=== PATIENT | male | born 1950 | race Caucasian/White ===

== ENCOUNTER 2022-02-28 02:07 | Inpatient (IN) ==
[2022-02-28] MEDS ORDERED: Lactated Ringers 1000 ml BAG 1,000 ML IV ONE ×3 (02:32→15:12)
[2022-02-28 02:59] LABS: ABS Eosinophils 0.1 10^3/ul (0-0.6); ABS Lymphocytes 0.7 10^3/ul (1.0-4.8); ABS Monocytes 0.7 10^3/ul (0-0.8); ABS Neutrophils 6.5 10^3/ul (1.5-7.7); Eosinophil % 0.6 %; Hematocrit 39 % (42-52); Hemoglobin 12.5 g/dL (14.0-18.0); Lymphocyte % 8.5 %; Mean Corpuscular HGB Conc 32 g/dL (31-36); Mean Corpuscular Hemoglobin 32 pg (27-31); Mean Corpuscular Volume 99 fL (80-94); Mean Platelet Volume 8.9 fL (7.4-10.4); Nucleated Red Blood Cells % 0.1; Platelet Count 211 10^3/uL (150-450); Red Blood Count 3.92 10^6 /uL (4.18-5.48); Red Cell Distribution Width 17 % (10-15); White Blood Count 7.9 10^3/uL (3.5-10.8)
[2022-02-28 03:00] LABS: Venous Bicarbonate HCO3 26.9 mmol/L (24-28)
[2022-02-28 04:01] LABS: Albumin 3.3 g/dL (3.2-5.2); Albumin/Globulin Ratio 0.8 (1-3); Calcium 8.4 mg/dL (8.6-10.3); Potassium 4.5 mmol/L (3.5-5.0); Total Bilirubin 0.4 mg/dL (0.2-1.0); Total Protein 7.3 g/dL (6.4-8.9); eGFR CKD-EPI 31.6 (>60)
[2022-02-28] MEDS ORDERED: Iodixanol (CONTRAST) 320 MG/ML 100 ML SDV IV ONE (07:26)
[2022-02-28 07:27] LABS: High Sensitivity Troponin 1 Hr 54 pg/mL (<20)
[2022-02-28 11:31] LABS: PCO2 Arterial 69 mmHg (35-45); PO2 Arterial 101 mmHg (80-100)
[2022-02-28] MEDS ORDERED: cefTRIAXone 1 gm/50 mL D5W 1 GM/50 ML BAG IV ONE (11:33)
[2022-02-28 13:02] LABS: ABS Eosinophils 0.1 10^3/ul (0-0.6); ABS Lymphocytes 1.5 10^3/ul (1.0-4.8); ABS Monocytes 0.7 10^3/ul (0-0.8); ABS Neutrophils 3.7 10^3/ul (1.5-7.7); Eosinophil % 1.7 %; Hematocrit 35 % (42-52); Hemoglobin 11.4 g/dL (14.0-18.0); Lymphocyte % 25.2 %; Mean Corpuscular HGB Conc 33 g/dL (31-36); Mean Corpuscular Hemoglobin 32 pg (27-31); Mean Corpuscular Volume 98 fL (80-94); Mean Platelet Volume 8.7 fL (7.4-10.4); Platelet Count 191 10^3/uL (150-450); Red Blood Count 3.56 10^6 /uL (4.18-5.48); Red Cell Distribution Width 16 % (10-15)
[2022-02-28 13:08] LABS: Urine Appearance Clear; Urine Bilirubin Negative (Negative); Urine Blood Negative (Negative); Urine Color Amber; Urine Glucose Negative (Negative); Urine Ketones Negative (Negative); Urine Nitrite Negative (Negative); Urine Protein 1+(30 mg/dL) (Negative); Urine Specific Gravity 1.032 (1.002-1.030); Urine Urobilinogen Negative (Negative)
[2022-02-28 13:14] LABS: Urine Bacteria Absent (Absent); Urine Red Blood Cell 2+(6-10/hpf) (Absent); Urine Squamous Epithelial Cell Present (Absent); Urine White Blood Cell 1+(6-10/hpf) (Absent)
[2022-02-28 13:32] LABS: Blood Urea Nitrogen 43 mg/dL (6-24); Calcium 7.9 mg/dL (8.6-10.3); Chloride 95 mmol/L (101-111); Glucose 177 mg/dL (70-100); Magnesium 1.9 mg/dL (1.9-2.7); Sodium 141 mmol/L (135-145); eGFR CKD-EPI 35.7 (>60)
[2022-02-28 14:02] LABS: Anion Gap 6 mmol/L (2-11); CO2 Carbon Dioxide 40 mmol/L (22-32)
[2022-02-28] MEDS ORDERED: Dextrose 50% Syringe 50 ml 25 GM/50 ML SYRINGE IV PUSH PRN (15:25)
[2022-02-28] MEDS ORDERED: Albuterol/Ipratropium NEB.SOL (2.5/0.5 MG) 3 ML NEB.SOLN INH PRN (16:49)
[2022-02-28 16:59] LABS: C Reactive Protein 71.44 mg/L (<8.01)
[2022-02-28] MEDS: Mometasone/Formoter 100/5 MDI INH SCH (20:09)
[2022-02-28] MEDS: Acetaminophen IV 1 GM/100ML 1,000 MG/100 ML BAG IV PRN (20:20)
[2022-02-28] MEDS: Insulin GLARGINE 100 un/ml 10 ml VIAL SUBCUT SCH (22:11)
[2022-03-01 02:05] LABS: Osmolality Serum 314 mOsm/kg (275-295)
[2022-03-01 02:07] LABS: Urine Osmo 656 mOsm/kg (150-1150)
[2022-03-01] MEDS: SPIRIVA Respimat (tiotropium) 2.5 mcg/inh Inhaler INH SCH (07:24)
[2022-03-01] MEDS: Mometasone/Formoter 100/5 MDI INH SCH ×2 (07:24→21:08)
[2022-03-01 08:40] LABS: ABS Eosinophils 0.1 10^3/ul (0-0.6); ABS Lymphocytes 1.6 10^3/ul (1.0-4.8); ABS Monocytes 0.7 10^3/ul (0-0.8); Eosinophil % 1.9 %; Hematocrit 37 % (42-52); Hemoglobin 11.9 g/dL (14.0-18.0); Lymphocyte % 24.1 %; Mean Corpuscular HGB Conc 32 g/dL (31-36); Mean Corpuscular Hemoglobin 32 pg (27-31); Mean Corpuscular Volume 99 fL (80-94); Mean Platelet Volume 8.8 fL (7.4-10.4); Platelet Count 181 10^3/uL (150-450); Red Blood Count 3.71 10^6 /uL (4.18-5.48); Red Cell Distribution Width 16 % (10-15); White Blood Count 6.4 10^3/uL (3.5-10.8)
[2022-03-01] MEDS ORDERED: Furosemide 40 mg/4 ml IV VIAL IV SLOW PU ONE (08:46)
[2022-03-01] MEDS: Acetaminophen IV 1 GM/100ML 1,000 MG/100 ML BAG IV PRN (08:49)
[2022-03-01] MEDS: Aspirin EC 81 mg TAB.EC (enteric coated) PO SCH (08:51)
[2022-03-01 08:54] LABS: Albumin 3.2 g/dL (3.2-5.2); Albumin/Globulin Ratio 0.9 (1-3); Calcium 8.5 mg/dL (8.6-10.3); Globulin 3.7 g/dL (2-4); HDL Cholesterol 16.7 mg/dL; Potassium 3.6 mmol/L (3.5-5.0); Total Bilirubin 0.6 mg/dL (0.2-1.0); Total Protein 6.9 g/dL (6.4-8.9); eGFR CKD-EPI 68.8 (>60)
[2022-03-01 09:06] LABS: Venous Bicarbonate HCO3 38.5 mmol/L (24-28)
[2022-03-01] MEDS: cefTRIAXone 1 gm/50 mL D5W 1 GM/50 ML BAG IV SCH (10:30)
[2022-03-01] MEDS: Furosemide 40 mg/4 ml IV VIAL IV SCH (13:06)
[2022-03-01 16:42] LABS: PCO2 Arterial 71 mmHg (35-45); PO2 Arterial 64 mmHg (80-100)
[2022-03-01] MEDS ORDERED: Duloxetine Sprinkle 30 mg CAP PO SCH (21:00)
[2022-03-01] MEDS: DULoxetine DR 30 mg CAP PO SCH (21:57)
[2022-03-01] MEDS: Insulin GLARGINE 100 un/ml 10 ml VIAL SUBCUT SCH (22:05)
[2022-03-02] MEDS ORDERED: Senna TAB 8.6 mg TAB PO PRN (02:37)
[2022-03-02] MEDS ORDERED: Polyethylene Glycol 3350 17 GM PACKET PO PRN (02:37)
[2022-03-02] MEDS: Ondansetron ODT 4 mg TAB 4 MG TAB SL PRN ×2 (02:44→22:03)
[2022-03-02 05:26] LABS: ABS Eosinophils 0.1 10^3/ul (0-0.6); ABS Lymphocytes 1.6 10^3/ul (1.0-4.8); ABS Monocytes 0.8 10^3/ul (0-0.8); ABS Neutrophils 4.9 10^3/ul (1.5-7.7); Eosinophil % 1.1 %; Hematocrit 38 % (42-52); Hemoglobin 11.8 g/dL (14.0-18.0); Lymphocyte % 21.4 %; Mean Corpuscular HGB Conc 31 g/dL (31-36); Mean Corpuscular Hemoglobin 31 pg (27-31); Mean Corpuscular Volume 100 fL (80-94); Nucleated Red Blood Cells % 0.1; Platelet Count 181 10^3/uL (150-450); Red Blood Count 3.76 10^6 /uL (4.18-5.48); Red Cell Distribution Width 16 % (10-15); White Blood Count 7.4 10^3/uL (3.5-10.8)
[2022-03-02 05:35] LABS: PCO2 Arterial 67 mmHg (35-45); PO2 Arterial 81 mmHg (80-100)
[2022-03-02 06:18] LABS: Blood Urea Nitrogen 26 mg/dL (6-24); Calcium 8.8 mg/dL (8.6-10.3); Chloride 95 mmol/L (101-111); Glucose 176 mg/dL (70-100); Magnesium 1.7 mg/dL (1.9-2.7); Sodium 140 mmol/L (135-145); eGFR CKD-EPI 93.6 (>60)
[2022-03-02 06:29] LABS: Anion Gap 3 mmol/L (2-11); CO2 Carbon Dioxide 42 mmol/L (22-32)
[2022-03-02] MEDS ORDERED: Magnesium Sulfate IV 1GM/100ML 1 GM/100 ML BAG IV ONE (08:19)
[2022-03-02] MEDS ORDERED: Potassium Chlor 20 meq TAB.ER PO ONE (08:19)
[2022-03-02] MEDS: Mometasone/Formoter 100/5 MDI INH SCH ×2 (08:39→18:55)
[2022-03-02] MEDS: SPIRIVA Respimat (tiotropium) 2.5 mcg/inh Inhaler INH SCH (08:39)
[2022-03-02] MEDS ORDERED: Influenza vaccine *QUAD* *2022-23* 0.5 ML SYRINGE IM ONE (09:00)
[2022-03-02] MEDS: Aspirin EC 81 mg TAB.EC (enteric coated) PO SCH (10:36)
[2022-03-02] MEDS: Furosemide 40 mg/4 ml IV VIAL IV SCH ×2 (10:37→12:53)
[2022-03-02] MEDS: cefTRIAXone 1 gm/50 mL D5W 1 GM/50 ML BAG IV SCH (12:03)
[2022-03-02] MEDS ORDERED: Sulfur Hexaflouride MICROSPHR 25 MG VIAL ONE (13:33)
[2022-03-02] MEDS: DULoxetine DR 30 mg CAP PO SCH (21:15)
[2022-03-02] MEDS: Insulin GLARGINE 100 un/ml 10 ml VIAL SUBCUT SCH (21:18)
[2022-03-02] MEDS ORDERED: Ondansetron 4 mg VIAL 2 MG/ML 2 ml VIAL IV ONE (23:14)
[2022-03-03] MEDS: Acetaminophen IV 1 GM/100ML 1,000 MG/100 ML BAG IV PRN ×3 (01:42→22:48)
[2022-03-03 06:39] LABS: Calcium 8.9 mg/dL (8.6-10.3); Magnesium 1.6 mg/dL (1.9-2.7); Potassium 3.7 mmol/L (3.5-5.0); eGFR CKD-EPI 100.7 (>60)
[2022-03-03] MEDS: Mometasone/Formoter 100/5 MDI INH SCH ×2 (07:55→19:11)
[2022-03-03] MEDS: SPIRIVA Respimat (tiotropium) 2.5 mcg/inh Inhaler INH SCH (07:55)
[2022-03-03] MEDS ORDERED: Magnesium Sulfate IV 3 GM in NS 0.9% 100 ml BAG 100 ML IVPB ONE (08:19)
[2022-03-03] MEDS ORDERED: Potassium Chlor 20 meq TAB.ER PO ONE ×2 (08:20→16:33)
[2022-03-03] MEDS: Furosemide 40 mg/4 ml IV VIAL IV SCH (09:13)
[2022-03-03] MEDS: Aspirin EC 81 mg TAB.EC (enteric coated) PO SCH (09:14)
[2022-03-03 11:57] LABS: TSH Ultra Thyroid Stim Horm 0.68 mcIU/mL (0.34-5.60)
[2022-03-03 12:00] LABS: Folate 18.04 ng/mL (5.90-24.80); Free T4 1.02 ng/dL (0.61-1.12)
[2022-03-03 12:01] LABS: Free T3 2.8 pg/mL (2.5-3.9)
[2022-03-03 15:14] LABS: Calcium 8.9 mg/dL (8.6-10.3); Magnesium 1.8 mg/dL (1.9-2.7); eGFR CKD-EPI 98.9 (>60)
[2022-03-03] MEDS ORDERED: Magnesium Sulfate 2 gm BAG 2 GM/50 ML BAG IVPB ONE (16:32)
[2022-03-03] MEDS: Bumetanide IV 0.25 MG/ML 4 ml VIAL (1 mg) SLOW PUSH SCH (20:28)
[2022-03-03] MEDS: Insulin GLARGINE 100 un/ml 10 ml VIAL SUBCUT SCH (22:47)
[2022-03-03] MEDS: DULoxetine DR 30 mg CAP PO SCH (22:48)
[2022-03-04] MEDS: Bumetanide IV 0.25 MG/ML 4 ml VIAL (1 mg) SLOW PUSH SCH ×2 (05:46→17:43)
[2022-03-04 07:17] LABS: Calcium 8.7 mg/dL (8.6-10.3); Magnesium 1.7 mg/dL (1.9-2.7); Potassium 3.8 mmol/L (3.5-5.0); eGFR CKD-EPI 102.7 (>60)
[2022-03-04] MEDS: SPIRIVA Respimat (tiotropium) 2.5 mcg/inh Inhaler INH SCH (07:50)
[2022-03-04] MEDS: Mometasone/Formoter 100/5 MDI INH SCH ×2 (07:50→19:24)
[2022-03-04] MEDS: Aspirin EC 81 mg TAB.EC (enteric coated) PO SCH (10:42)
[2022-03-04] MEDS: DULoxetine DR 30 mg CAP PO SCH (21:27)
[2022-03-04] MEDS: Insulin GLARGINE 100 un/ml 10 ml VIAL SUBCUT SCH (21:28)
[2022-03-05] MEDS: Bumetanide IV 0.25 MG/ML 4 ml VIAL (1 mg) SLOW PUSH SCH ×2 (06:02→17:06)
[2022-03-05 06:09] LABS: ABS Eosinophils 0.1 10^3/ul (0-0.6); ABS Lymphocytes 1.2 10^3/ul (1.0-4.8); ABS Monocytes 0.5 10^3/ul (0-0.8); ABS Neutrophils 3.3 10^3/ul (1.5-7.7); Eosinophil % 2.5 %; Hematocrit 38 % (42-52); Hemoglobin 12.3 g/dL (14.0-18.0); Lymphocyte % 22.4 %; Mean Corpuscular HGB Conc 32 g/dL (31-36); Mean Corpuscular Hemoglobin 32 pg (27-31); Mean Corpuscular Volume 99 fL (80-94); Mean Platelet Volume 8.9 fL (7.4-10.4); Nucleated Red Blood Cells % 0.1; Platelet Count 166 10^3/uL (150-450); Red Blood Count 3.86 10^6 /uL (4.18-5.48); Red Cell Distribution Width 16 % (10-15); White Blood Count 5.2 10^3/uL (3.5-10.8)
[2022-03-05 06:27] LABS: Calcium 8.9 mg/dL (8.6-10.3); Potassium 3.9 mmol/L (3.5-5.0); eGFR CKD-EPI 98.5 (>60)
[2022-03-05] MEDS: Mometasone/Formoter 100/5 MDI INH SCH ×2 (07:46→21:03)
[2022-03-05] MEDS: SPIRIVA Respimat (tiotropium) 2.5 mcg/inh Inhaler INH SCH (07:47)
[2022-03-05] MEDS: Aspirin EC 81 mg TAB.EC (enteric coated) PO SCH (08:10)
[2022-03-05 11:11] LABS: Magnesium 1.5 mg/dL (1.9-2.7)
[2022-03-05] MEDS ORDERED: Magnesium Sulf 4 GM/100 ML IV 4,000 MG/100 ML BAG IVPB ONE (11:14)
[2022-03-05] MEDS: DULoxetine DR 30 mg CAP PO SCH (20:47)
[2022-03-05] MEDS ORDERED: Insulin GLARGINE 100 un/ml 10 ml VIAL SUBCUT SCH (21:00)
[2022-03-06] MEDS: Bumetanide IV 0.25 MG/ML 4 ml VIAL (1 mg) SLOW PUSH SCH (05:53)
[2022-03-06] MEDS: SPIRIVA Respimat (tiotropium) 2.5 mcg/inh Inhaler INH SCH (08:09)
[2022-03-06] MEDS: Mometasone/Formoter 100/5 MDI INH SCH (08:09)
[2022-03-06] MEDS: Aspirin EC 81 mg TAB.EC (enteric coated) PO SCH (08:18)
[2022-03-06 11:15] VITALS: BP 152/89
[2022-03-06] MEDS ORDERED: Polyethylene Glycol 3350 17 GM PACKET PO ONE (12:46)
== END 2022-03-06 13:50 | disposition home or self-care (01) | DRG 602 ==
LOC: ED 02:07 → SUATTDRO 15:06 → EDHOLD 15:06 → MEDTELE 17:15
PROVIDERS: ADMIT Internal Medicine; ATTEND Internal Medicine

== ENCOUNTER 2023-05-10 15:11 | Inpatient (IN) ==
[2023-05-10 16:29] LABS: ABS Eosinophils 0.1 10^3/uL (0.0-0.5); ABS Lymphocytes 1.4 10^3/uL (1.0-4.8); ABS Monocytes 0.7 10^3/uL (0.0-1.1); ABS Neutrophils 5.6 10^3/uL (1.5-7.6); ABS Nucleated RBC 0.01 10^3/ul; Eosinophil % 1.6 %; Hematocrit 37.1 % (38-53); Hemoglobin 12.3 g/dL (13.2-16.3); Mean Corpuscular Hemoglobin 31.7 pg (27-33); Mean Corpuscular Hgb Conc 33.1 g/dL (31-36); Mean Corpuscular Volume 95.9 fL (80-97); Mean Platelet Volume 10.5 fL (7.5-11.2); Nucleated Red Blood Cells % 0.1 %/100WBC (0.0-0.8); Platelet Count 242 10^3/uL (150-450); Red Blood Count 3.87 10^6/uL (4.06-5.63); Red Cell Distribution Width 15.2 % (12-17); White Blood Count 7.9 10^3/uL (3.6-10.2)
[2023-05-10 16:39] LABS: Activated Partial Thrombo Time 36.8 seconds (26.0-38.0); INR 1.52 (0.83-1.13)
[2023-05-10 17:10] LABS: Albumin 3.3 g/dL (3.2-5.2); Albumin/Globulin Ratio 0.8 (1-3); C Reactive Protein 29.53 mg/L (<8.01); Calcium 9.1 mg/dL (8.6-10.3); Creatinine, Serum 6.18 mg/dL (0.67-1.17); Globulin 4.3 g/dL (2-4); Magnesium 3.4 mg/dL (1.9-2.7); Potassium 7.3 mmol/L (3.5-5.0); Total Bilirubin 0.4 mg/dL (0.2-1.0); Total Protein 7.6 g/dL (6.4-8.9)
[2023-05-10] MEDS ORDERED: CALCIUM GLUCONATE 1GM/50ML NS 1 GM/50 ML BAG IV ONE (17:12)
[2023-05-10] MEDS ORDERED: Dextrose 50% Syringe 50 ml 25 GM/50 ML SYRINGE IV PUSH ONE (17:13)
[2023-05-10 17:28] LABS: TSH Ultra Thyroid Stim Horm 1.58 mcIU/mL (0.34-5.60)
[2023-05-10] MEDS ORDERED: NS 0.9% 1000 ml BAG 1,000 ML IV SCH ×2 (17:30→18:00)
[2023-05-10 17:38] LABS: High Sensitivity Troponin 1 Hr 13 pg/mL (<20)
[2023-05-10] MEDS ORDERED: Sodium Polystyrene ORAL.SUSP 15 GM/60 ML BTL PO ONE (17:50)
[2023-05-10] MEDS ORDERED: Lactated Ringers 1000 ml BAG 1,000 ML IV SCH (18:00)
[2023-05-10 19:25] LABS: Phosphorus 5.1 mg/dL (2.5-5.0)
[2023-05-10 20:00] LABS: Calcium 9.2 mg/dL (8.6-10.3); Creatinine, Serum 6.09 mg/dL (0.67-1.17); eGFR CKD-EPI 9.1 (>60)
[2023-05-10] MEDS ORDERED: Dextrose 50% Syringe 50 ml 25 GM/50 ML SYRINGE IV PUSH PRN (20:45)
[2023-05-10] MEDS ORDERED: Senna TAB 8.6 mg TAB PO PRN (21:02)
[2023-05-10] MEDS ORDERED: Docusate LIQ 100 MG/10 ML UDC PO PRN (21:03)
[2023-05-10] MEDS ORDERED: Lactated Ringers 1000 ml BAG 500 ML IV ONE (21:24)
[2023-05-10 21:39] LABS: Osmolality Serum 335 mOsm/kg (275-295)
[2023-05-10 21:51] LABS: Urine Appearance Clear; Urine Bilirubin Negative (Negative); Urine Blood 1+ (Negative); Urine Color Yellow; Urine Glucose Negative (Negative); Urine Ketones Trace (Negative); Urine Nitrite Negative (Negative); Urine Protein Negative (Negative); Urine Specific Gravity 1.018 (1.002-1.030); Urine Urobilinogen Negative (Negative)
[2023-05-10 21:53] LABS: Urine Osmo 453 mOsm/kg (150-1150)
[2023-05-10 22:03] LABS: Urine Bacteria 1+ (Absent); Urine Red Blood Cell 3+(>10/hpf) (Absent); Urine Squamous Epithelial Cell Present (Absent); Urine White Blood Cell 1+(6-10/hpf) (Absent)
[2023-05-11] MEDS: Ondansetron 4 mg VIAL 2 MG/ML 2 ml VIAL IV PRN ×2 (00:07→12:25)
[2023-05-11 00:57] LABS: Calcium 9.2 mg/dL (8.6-10.3); Creatinine, Serum 6.01 mg/dL (0.67-1.17); Potassium 6.1 mmol/L (3.5-5.0); eGFR CKD-EPI 9.3 (>60)
[2023-05-11] MEDS: Triamcinolone 0.025% OINT 15 GM TUBE TOPICAL SCH ×3 (01:12→21:00)
[2023-05-11 04:19] LABS: ABS Basophils 0.1 10^3/uL (0.0-0.1); ABS Eosinophils 0.1 10^3/uL (0.0-0.5); ABS Lymphocytes 1.2 10^3/uL (1.0-4.8); ABS Monocytes 0.7 10^3/uL (0.0-1.1); ABS Neutrophils 5.6 10^3/uL (1.5-7.6); Eosinophil % 1.1 %; Hematocrit 35.5 % (38-53); Hemoglobin 11.8 g/dL (13.2-16.3); Lymphocyte % 15.4 %; Mean Corpuscular Hemoglobin 31.5 pg (27-33); Mean Corpuscular Hgb Conc 33.2 g/dL (31-36); Mean Corpuscular Volume 94.9 fL (80-97); Mean Platelet Volume 10.3 fL (7.5-11.2); Platelet Count 222 10^3/uL (150-450); Red Blood Count 3.74 10^6/uL (4.06-5.63); Red Cell Distribution Width 15.4 % (12-17); White Blood Count 7.7 10^3/uL (3.6-10.2)
[2023-05-11 04:36] LABS: Calcium 8.9 mg/dL (8.6-10.3); Creatinine, Serum 5.67 mg/dL (0.67-1.17); Magnesium 3.4 mg/dL (1.9-2.7); Potassium 6.6 mmol/L (3.5-5.0)
[2023-05-11] MEDS ORDERED: CALCIUM GLUCONATE 1GM/50ML NS 1 GM/50 ML BAG IV ONE (04:42)
[2023-05-11] MEDS ORDERED: Lactated Ringers 1000 ml BAG 1,000 ML IV ONE (04:55)
[2023-05-11] MEDS ORDERED: Dextrose 50% Syringe 50 ml 25 GM/50 ML SYRINGE IV PUSH ONE (04:56)
[2023-05-11] MEDS ORDERED: SODIUM ZIRCONIUM CYCLOSILICATE 10 GM PACKET PO ONE (04:57)
[2023-05-11 06:18] LABS: Calcium 8.7 mg/dL (8.6-10.3); Creatinine, Serum 5.4 mg/dL (0.67-1.17); Potassium 6.4 mmol/L (3.5-5.0); eGFR CKD-EPI 10.6 (>60)
[2023-05-11] MEDS ORDERED: Sodium Polystyrene ORAL.SUSP 15 GM/60 ML BTL PO ONE (07:32)
[2023-05-11] MEDS: SPIRIVA Respimat (tiotropium) 2.5 mcg/inh Inhaler INH SCH (08:07)
[2023-05-11] MEDS: Mometasone/Formoter 100/5 MDI INH SCH ×2 (08:08→21:31)
[2023-05-11] MEDS: NS 0.9% 1000 ml BAG 1,000 ML IV SCH ×2 (11:47→21:00)
[2023-05-11 12:56] LABS: Calcium 9.2 mg/dL (8.6-10.3); Creatinine, Serum 4.34 mg/dL (0.67-1.17); Potassium 5.4 mmol/L (3.5-5.0); eGFR CKD-EPI 13.7 (>60)
[2023-05-11 13:00] LABS: Rheumatoid Factor < 10 IU/mL (<15)
[2023-05-11 13:43] LABS: Hepatitis B Surface Ab Not Immune (Immune); Hepatitis C Antibody Negative (Negative)
[2023-05-11 16:51] LABS: Calcium 8.9 mg/dL (8.6-10.3); Creatinine, Serum 3.63 mg/dL (0.67-1.17); Potassium 5.5 mmol/L (3.5-5.0)
[2023-05-11 17:44] LABS: Hepatitis B Surface Antigen Nonreactive (Nonreactive)
[2023-05-11 17:53] LABS: HIV 4th Generation Nonreactive (Nonreactive)
[2023-05-11] MEDS: DULoxetine DR 30 mg CAP PO SCH ×2 (20:47)
[2023-05-12] MEDS: Ondansetron 4 mg VIAL 2 MG/ML 2 ml VIAL IV PRN ×3 (00:52→21:32)
[2023-05-12 07:42] LABS: ABS Eosinophils 0.1 10^3/uL (0.0-0.5); ABS Lymphocytes 1.4 10^3/uL (1.0-4.8); ABS Monocytes 0.8 10^3/uL (0.0-1.1); Eosinophil % 1.4 %; Hemoglobin 12.4 g/dL (13.2-16.3); Lymphocyte % 19.2 %; Mean Corpuscular Hemoglobin 31.3 pg (27-33); Mean Corpuscular Hgb Conc 32.6 g/dL (31-36); Mean Corpuscular Volume 95.9 fL (80-97); Mean Platelet Volume 10.4 fL (7.5-11.2); Platelet Count 212 10^3/uL (150-450); Red Blood Count 3.97 10^6/uL (4.06-5.63); Red Cell Distribution Width 15.3 % (12-17); White Blood Count 7.3 10^3/uL (3.6-10.2)
[2023-05-12 08:17] LABS: Creatinine, Serum 2.28 mg/dL (0.67-1.17); Magnesium 2.4 mg/dL (1.9-2.7); Potassium 4.7 mmol/L (3.5-5.0); eGFR CKD-EPI 29.7 (>60)
[2023-05-12] MEDS: SPIRIVA Respimat (tiotropium) 2.5 mcg/inh Inhaler INH SCH (08:17)
[2023-05-12] MEDS: Mometasone/Formoter 100/5 MDI INH SCH ×2 (08:17→21:04)
[2023-05-12] MEDS: Aspirin EC 81 mg TAB.EC (enteric coated) PO SCH (08:34)
[2023-05-12] MEDS: Triamcinolone 0.025% OINT 15 GM TUBE TOPICAL SCH ×2 (08:34→19:40)
[2023-05-12] MEDS ORDERED: Insulin GLARGINE 100 un/ml 10 ml VIAL SUBCUT SCH ×3 (10:00→21:00)
[2023-05-12 16:26] LABS: Kappa Free Light Chain 6.61 mg/dL; Lambda Free Light Chain, S 4.21 mg/dL
[2023-05-12] MEDS ORDERED: Dextrose 50% Syringe 50 ml 25 GM/50 ML SYRINGE IV PUSH PRN (16:39)
[2023-05-12 16:48] LABS: Complement C3 168 mg/dL (75 - 175)
[2023-05-12] MEDS: DULoxetine DR 30 mg CAP PO SCH (19:40)
[2023-05-13] MEDS ORDERED: Prochlorperazine 5 mg/ml 2 ml VIAL (10 mg) IV PRN (00:15)
[2023-05-13 06:46] LABS: ABS Eosinophils 0.2 10^3/uL (0.0-0.5); ABS Lymphocytes 1.7 10^3/uL (1.0-4.8); ABS Monocytes 0.8 10^3/uL (0.0-1.1); ABS Nucleated RBC 0.01 10^3/ul; Eosinophil % 1.9 %; Hematocrit 36.7 % (38-53); Hemoglobin 11.9 g/dL (13.2-16.3); Lymphocyte % 22.3 %; Mean Corpuscular Hemoglobin 31.4 pg (27-33); Mean Corpuscular Hgb Conc 32.6 g/dL (31-36); Mean Corpuscular Volume 96.5 fL (80-97); Mean Platelet Volume 10.5 fL (7.5-11.2); Nucleated Red Blood Cells % 0.1 %/100WBC (0.0-0.8); Platelet Count 198 10^3/uL (150-450); Red Cell Distribution Width 15.5 % (12-17); White Blood Count 7.8 10^3/uL (3.6-10.2)
[2023-05-13 07:02] LABS: Calcium 9.4 mg/dL (8.6-10.3); Creatinine, Serum 1.46 mg/dL (0.67-1.17); Magnesium 1.7 mg/dL (1.9-2.7); Potassium 4.4 mmol/L (3.5-5.0); eGFR CKD-EPI 50.8 (>60)
[2023-05-13] MEDS: Mometasone/Formoter 100/5 MDI INH SCH (08:14)
[2023-05-13] MEDS: SPIRIVA Respimat (tiotropium) 2.5 mcg/inh Inhaler INH SCH (08:14)
[2023-05-13] MEDS ORDERED: Insulin GLARGINE 100 un/ml 10 ml VIAL SUBCUT SCH (09:00)
[2023-05-13] MEDS ORDERED: Magnesium Sulfate 2 gm BAG 2 GM/50 ML BAG IVPB ONE (09:30)
[2023-05-13] MEDS: Aspirin EC 81 mg TAB.EC (enteric coated) PO SCH (09:54)
[2023-05-13] MEDS: Triamcinolone 0.025% OINT 15 GM TUBE TOPICAL SCH (10:04)
[2023-05-13 13:58] VITALS: BP 130/64
[2023-05-13 15:59] LABS: C-ANCA Negative (Negative); P-ANCA Negative (Negative)
[2023-05-14 11:53] LABS: Albumin 2.5 g/dL (3.4-4.7); Flag, M-protein Isotype Negative (Negative)
== END 2023-05-13 14:32 | disposition home or self-care (01) | DRG 683 ==
LOC: ED 15:11 → SUATTDRO 18:32 → EDHOLD 18:32 → MEDTELE 21:45
PROVIDERS: ADMIT Internal Medicine; ATTEND Internal Medicine

== ENCOUNTER 2023-06-21 09:59 | Inpatient (IN) ==
[2023-06-21 10:31] LABS: ABS Basophils 0.1 10^3/uL (0.0-0.1); ABS Lymphocytes 0.7 10^3/uL (1.0-4.8); ABS Neutrophils 11.1 10^3/uL (1.5-7.6); Eosinophil % 0.2 %; Hematocrit 35.7 % (38-53); Hemoglobin 11.6 g/dL (13.2-16.3); Lymphocyte % 5.7 %; Mean Corpuscular Hemoglobin 31.3 pg (27-33); Mean Corpuscular Hgb Conc 32.6 g/dL (31-36); Mean Corpuscular Volume 96.1 fL (80-97); Mean Platelet Volume 11.4 fL (7.5-11.2); Platelet Count 172 10^3/uL (150-450); Red Blood Count 3.72 10^6/uL (4.06-5.63); White Blood Count 12.9 10^3/uL (3.6-10.2)
[2023-06-21 10:46] LABS: Activated Partial Thrombo Time 32.2 seconds (26.0-38.0); INR 1.71 (0.83-1.13)
[2023-06-21 11:01] LABS: Albumin 3.7 g/dL (3.2-5.2); Albumin/Globulin Ratio 1.1 (1-3); C Reactive Protein 35.7 mg/L (<8.01); Calcium 9.5 mg/dL (8.6-10.3); Creatinine, Serum 2.6 mg/dL (0.67-1.17); Globulin 3.5 g/dL (2-4); Potassium 6.7 mmol/L (3.5-5.0); Total Bilirubin 0.7 mg/dL (0.2-1.0); Total Protein 7.2 g/dL (6.4-8.9); eGFR CKD-EPI 25.4 (>60)
[2023-06-21] MEDS: NS 0.9% 1000 ml BAG 1,000 ML IV ONE (11:34)
[2023-06-21] MEDS: Sodium Polystyrene ORAL.SUSP 15 GM/60 ML BTL PO ONE (11:43)
[2023-06-21 11:56] LABS: High Sensitivity Troponin 1 Hr 12 pg/mL (<20)
[2023-06-21] MEDS: Dextrose 50% Syringe 50 ml 25 GM/50 ML SYRINGE IV PUSH ONE (12:58)
[2023-06-21] MEDS: CALCIUM GLUCONATE 1GM/50ML NS 1 GM/50 ML BAG IV ONE (13:09)
[2023-06-21] MEDS ORDERED: Senna/Docusate 8.6/50 mg (NF) TAB PO PRN (15:54)
[2023-06-21] MEDS ORDERED: Docusate LIQ 100 MG/10 ML UDC PO PRN ×2 (16:08→16:13)
[2023-06-21] MEDS ORDERED: CMCS: Isosorbide Mononitr 20 mg (NF) PO PRN (16:10)
[2023-06-21] MEDS ORDERED: Senna TAB 8.6 mg TAB PO PRN (16:13)
[2023-06-21] MEDS ORDERED: Dextrose 50% Syringe 50 ml 25 GM/50 ML SYRINGE IV PUSH PRN (16:24)
[2023-06-21] MEDS: NS 0.9% 1000 ml BAG 1,000 ML IV SCH (17:01)
[2023-06-21 17:25] LABS: Urine Appearance Clear; Urine Color Yellow; Urine Specific Gravity 1.019 (1.002-1.030); Urine pH 6.5 (5.0-8.0)
[2023-06-21 17:26] LABS: Urine Bilirubin Negative (Negative); Urine Blood Negative (Negative); Urine Glucose 2+ (>=150 mg/dL) (Negative); Urine Ketones Negative (Negative); Urine Nitrite Negative (Negative); Urine Protein Negative (Negative); Urine Urobilinogen Negative (Negative)
[2023-06-21 17:59] LABS: Calcium 9.4 mg/dL (8.6-10.3); Creatinine, Serum 2.27 mg/dL (0.67-1.17); Potassium 5.2 mmol/L (3.5-5.0); eGFR CKD-EPI 29.9 (>60)
[2023-06-21 18:13] LABS: Ferritin 83.9 ng/mL (24-336)
[2023-06-21] MEDS: Mometasone/Formoter 100/5 MDI INH SCH (21:28)
[2023-06-21] MEDS: DULoxetine DR 30 mg CAP PO SCH (23:34)
[2023-06-21] MEDS: SODIUM ZIRCONIUM CYCLOSILICATE 10 GM PACKET PO ONE (23:35)
[2023-06-22 02:43] LABS: Calcium 8.8 mg/dL (8.6-10.3); Creatinine, Serum 1.74 mg/dL (0.67-1.17); Potassium 4.2 mmol/L (3.5-5.0); eGFR CKD-EPI 41.1 (>60)
[2023-06-22 06:51] LABS: ABS Basophils 0.1 10^3/uL (0.0-0.1); ABS Eosinophils 0.1 10^3/uL (0.0-0.5); ABS Lymphocytes 0.9 10^3/uL (1.0-4.8); ABS Monocytes 0.5 10^3/uL (0.0-1.1); ABS Neutrophils 4.3 10^3/uL (1.5-7.6); Eosinophil % 1.9 %; Hematocrit 33.5 % (38-53); Hemoglobin 11.1 g/dL (13.2-16.3); Lymphocyte % 15.4 %; Mean Corpuscular Hemoglobin 31.7 pg (27-33); Mean Corpuscular Hgb Conc 33.1 g/dL (31-36); Mean Corpuscular Volume 95.7 fL (80-97); Platelet Count 129 10^3/uL (150-450); Red Cell Distribution Width 15.8 % (12-17)
[2023-06-22 07:11] LABS: Calcium 8.6 mg/dL (8.6-10.3); Creatinine, Serum 1.53 mg/dL (0.67-1.17); Potassium 4.1 mmol/L (3.5-5.0)
[2023-06-22] MEDS: SPIRIVA Respimat (tiotropium) 2.5 mcg/inh Inhaler INH SCH (07:55)
[2023-06-22] MEDS: Aspirin EC 81 mg TAB.EC (enteric coated) PO SCH (10:48)
[2023-06-22] MEDS: COVID VAC 23-24(12+)(Moderna) SYR 0.5 ML IM ONE (10:56)
[2023-06-22] MEDS: Ferric Gluconate IV 125 MG in NS 0.9% 100 ml BAG 100 ML IVPB ONE (11:58)
[2023-06-22 14:04] VITALS: BP 139/74
== END 2023-06-22 16:20 | disposition home or self-care (01) | DRG 641 ==
LOC: ED 09:59 → EDHOLD 15:18 → MEDTELE 22:29
PROVIDERS: ADMIT Student in an Organized Health Care Education/Training Program; ATTEND Student in an Organized Health Care Education/Training Program

== ENCOUNTER 2024-03-25 07:15 | Inpatient (IN) ==
[2024-03-25 08:07] LABS: ABS Eosinophils 0.1 10^3/uL (0.0-0.5); ABS Monocytes 0.7 10^3/uL (0.0-1.1); ABS Neutrophils 4.6 10^3/uL (1.5-7.6); Eosinophil % 1.8 %; Hematocrit 25.9 % (38-53); Hemoglobin 8.3 g/dL (13.2-16.3); Lymphocyte % 15.6 %; Mean Corpuscular Hemoglobin 30.3 pg (27-33); Mean Corpuscular Volume 94.7 fL (80-97); Mean Platelet Volume 8.8 fL (7.5-11.2); Platelet Count 225 10^3/uL (150-450); Red Blood Count 2.73 10^6/uL (4.06-5.63); White Blood Count 6.4 10^3/uL (3.6-10.2)
[2024-03-25 08:34] LABS: High Sens Troponin Baseline 15 pg/mL (<20)
[2024-03-25 08:38] LABS: ALT 10 U/L (7-52); AST 19 U/L (13-39); Albumin 3.1 g/dL (3.2-5.2); Albumin/Globulin Ratio 0.8 (1-3); Alkaline Phosphatase 97 U/L (35-149); Anion Gap 5 mmol/L (2-16); Blood Urea Nitrogen 40 mg/dL (6-24); C Reactive Protein 54.92 mg/L (<8.01); CO2 Carbon Dioxide 45 mmol/L (22-32); Calcium 8.9 mg/dL (8.6-10.3); Chloride 91 mmol/L (101-111); Creatinine, Serum 1.77 mg/dL (0.67-1.17); Glucose 158 mg/dL (70-100); Potassium 4.9 mmol/L (3.5-5.0); Sodium 141 mmol/L (135-145); Total Bilirubin 0.6 mg/dL (0.2-1.0); Total Protein 7.1 g/dL (6.4-8.9); eGFR CKD-EPI 40.1 (>60)
[2024-03-25 08:47] LABS: TSH Ultra Thyroid Stim Horm 1.93 mcIU/mL (0.34-5.60)
[2024-03-25 09:11] LABS: High Sensitivity Troponin 1 Hr 13 pg/mL (<20)
[2024-03-25 12:09] LABS: Immature Retic Fraction 0.49
[2024-03-25 12:15] LABS: % Iron Saturation 17 % (15-55); .Transferrin 225 mg/dL (203-362); Iron 54 ug/dL (50-212); Total Iron Binding Capacity 315 mcg/dL (250-450); Unsaturated Iron Binding 261 ug/dL
[2024-03-25 12:28] LABS: Urine Appearance Clear; Urine Bilirubin Negative (Negative); Urine Blood Negative (Negative); Urine Color Yellow; Urine Glucose Negative (Negative); Urine Ketones Negative (Negative); Urine Nitrite Negative (Negative); Urine Protein Trace (Negative); Urine Specific Gravity 1.023 (1.002-1.030); Urine Urobilinogen Negative (Negative); Urine pH 7.5 (5.0-8.0)
[2024-03-25 12:28] LABS: Corrected Retic Count 1.9 % (0.5-2.2)
[2024-03-25 12:29] LABS: Hematocrit for Retic CNT 26.4 % (38-53); RBC Retic Count 2.74 10^6/ul (4.06-5.63)
[2024-03-25 12:37] LABS: Ferritin 114.9 ng/mL (24-336)
[2024-03-25 12:40] LABS: Folate > 20.00 ng/mL (5.90-24.80)
[2024-03-25 12:41] LABS: Vitamin B12 822 pg/mL (180-914)
[2024-03-25 13:10] LABS: PO2 Arterial 130 mmHg (80-100)
[2024-03-25 13:15] LABS: PCO2 Arterial 74 mmHg (35-45)
[2024-03-25] MEDS ORDERED: Dextrose 50% Syringe 50 ml 25 GM/50 ML SYRINGE IV PUSH PRN ×2 (13:55)
[2024-03-25] MEDS ORDERED: Docusate LIQ 100 MG/10 ML UDC PO PRN (14:54)
[2024-03-25] MEDS ORDERED: Bumetanide IV 0.25 MG/ML 4 ml VIAL (1 mg) IV SLOW PU ONE (16:48)
[2024-03-25] MEDS: Bumetanide IV 0.25 MG/ML 4 ml VIAL (1 mg) IV SLOW PU ONE (18:01)
[2024-03-25] MEDS: Magnesium Hydroxide LIQ 30 ML UDC PO ONE (18:01)
[2024-03-25] MEDS: ISOSORBIDE MONONITRATE 20 MG PO SCH (20:12)
[2024-03-25] MEDS ORDERED: Fluticasone-Salmeterol 100-50 DISKUS NF INH SCH (21:00)
[2024-03-25] MEDS: DULoxetine DR 30 mg CAP PO SCH (22:29)
[2024-03-26] MEDS: Insulin GLARGINE 100 un/ml 10 ml VIAL SUBCUT SCH (00:07)
[2024-03-26] MEDS: Mometasone/Formoter 200/5 MDI INH SCH (05:18)
[2024-03-26 09:27] LABS: ABS Lymphocytes 0.9 10^3/uL (1.0-4.8); ABS Monocytes 0.6 10^3/uL (0.0-1.1); ABS Neutrophils 5.8 10^3/uL (1.5-7.6); ABS Nucleated RBC 0.01 10^3/ul; Eosinophil % 0.6 %; Hematocrit 25.1 % (38-53); Hemoglobin 8.2 g/dL (13.2-16.3); Lymphocyte % 12.1 %; Mean Corpuscular Hemoglobin 30.9 pg (27-33); Mean Corpuscular Hgb Conc 32.5 g/dL (31-36); Nucleated Red Blood Cells % 0.1 %/100WBC (0.0-0.8); Platelet Count 213 10^3/uL (150-450); Red Blood Count 2.64 10^6/uL (4.06-5.63); Red Cell Distribution Width 19.3 % (12-17); White Blood Count 7.4 10^3/uL (3.6-10.2)
[2024-03-26 09:50] LABS: Albumin/Globulin Ratio 0.8 (1-3); Calcium 8.9 mg/dL (8.6-10.3); Creatinine, Serum 1.43 mg/dL (0.67-1.17); Globulin 3.8 g/dL (2-4); Magnesium 2.2 mg/dL (1.9-2.7); Potassium 4.6 mmol/L (3.5-5.0); Total Bilirubin 0.7 mg/dL (0.2-1.0); Total Protein 6.8 g/dL (6.4-8.9); eGFR CKD-EPI 51.7 (>60)
[2024-03-26] MEDS: SPIRIVA Respimat (tiotropium) 2.5 mcg/inh Inhaler INH SCH (10:00)
[2024-03-26] MEDS: Bumetanide IV 0.25 MG/ML 4 ml VIAL (1 mg) IV SLOW PU SCH (10:10)
[2024-03-26] MEDS ORDERED: Senna TAB 8.6 mg TAB PO PRN (11:06)
[2024-03-26] MEDS: Senna TAB 8.6 mg TAB PO PRN (12:42)
[2024-03-26] MEDS: Nystatin TOP POWDER 15 GM BTL TOPICAL SCH (17:23)
[2024-03-27 03:08] LABS: PCO2 Arterial 53 mmHg (35-45); PO2 Arterial 70 mmHg (80-100)
[2024-03-27 06:28] LABS: ABS Eosinophils 0.1 10^3/uL (0.0-0.5); ABS Lymphocytes 1.2 10^3/uL (1.0-4.8); ABS Monocytes 0.8 10^3/uL (0.0-1.1); ABS Neutrophils 4.7 10^3/uL (1.5-7.6); ABS Nucleated RBC 0.01 10^3/ul; Eosinophil % 0.8 %; Hematocrit 24.9 % (38-53); Hemoglobin 8.2 g/dL (13.2-16.3); Lymphocyte % 17.3 %; Mean Corpuscular Hemoglobin 30.9 pg (27-33); Mean Corpuscular Hgb Conc 32.8 g/dL (31-36); Mean Corpuscular Volume 94.3 fL (80-97); Mean Platelet Volume 8.8 fL (7.5-11.2); Nucleated Red Blood Cells % 0.1 %/100WBC (0.0-0.8); Platelet Count 214 10^3/uL (150-450); Red Blood Count 2.64 10^6/uL (4.06-5.63); Red Cell Distribution Width 19.7 % (12-17); White Blood Count 6.7 10^3/uL (3.6-10.2)
[2024-03-27 06:49] LABS: Calcium 8.9 mg/dL (8.6-10.3); Creatinine, Serum 1.33 mg/dL (0.67-1.17); Potassium 3.8 mmol/L (3.5-5.0); eGFR CKD-EPI 56.4 (>60)
[2024-03-27 08:18] LABS: PCO2 Arterial 58 mmHg (35-45)
[2024-03-27 08:24] LABS: PO2 Arterial 57 mmHg (80-100)
[2024-03-27] MEDS: Potassium Chlor 20 meq TAB.ER PO ONE (08:42)
[2024-03-27 09:34] LABS: Albumin 2.9 g/dL (3.2-5.2); Albumin/Globulin Ratio 0.7 (1-3); Calcium 8.3 mg/dL (8.6-10.3); Creatinine, Serum 1.19 mg/dL (0.67-1.17); Globulin 4.1 g/dL (2-4); Potassium 3.7 mmol/L (3.5-5.0); Total Bilirubin 0.8 mg/dL (0.2-1.0); eGFR CKD-EPI 64.5 (>60)
[2024-03-27 10:21] LABS: PCO2 Arterial 60 mmHg (35-45); PO2 Arterial 64 mmHg (80-100)
[2024-03-27 10:38] LABS: Urine Appearance Clear; Urine Bilirubin Negative (Negative); Urine Blood Negative (Negative); Urine Color Yellow; Urine Glucose Negative (Negative); Urine Ketones 1+ (Negative); Urine Nitrite Negative (Negative); Urine Protein Negative (Negative); Urine Specific Gravity 1.015 (1.002-1.030); Urine Urobilinogen Negative (Negative); Urine pH 7.5 (5.0-8.0)
[2024-03-27] MEDS ORDERED: hydrALAZINE 20 mg/ml 1 ML Vial IV IV SLOW PU PRN (10:39)
[2024-03-27 10:41] LABS: High Sensitivity Troponin 1 Hr 25 pg/mL (<20)
[2024-03-27] MEDS ORDERED: Morphine 2 MG/ML SYRINGE IV PRN (10:44)
[2024-03-27] MEDS: Sulfur Hexaflouride MICROSPHR 25 MG VIAL IV PRN (10:53)
[2024-03-27] MEDS: KCL 20 MEQ/100 ML IVPREMIX 20 MEQ/100 ML BAG IV ONE (11:37)
[2024-03-27 12:11] LABS: Myoglobin 48.9 ng/mL (17.4-105.7)
[2024-03-27] MEDS ORDERED: Albuterol/Ipratropium NEB.SOL (2.5/0.5 MG) 3 ML NEB.SOLN INH PRN (14:19)
[2024-03-27] MEDS ORDERED: Albuterol 2.5mg/3 ml (0.083%) NEB.SOLN INH PRN (14:34)
[2024-03-28] MEDS: Polyethylene Glycol 3350 17 GM PACKET PO PRN (22:40)
[2024-03-29 08:19] LABS: ABS Basophils 0.1 10^3/uL (0.0-0.1); ABS Eosinophils 0.1 10^3/uL (0.0-0.5); ABS Lymphocytes 1.4 10^3/uL (1.0-4.8); ABS Neutrophils 6.8 10^3/uL (1.5-7.6); Eosinophil % 1.3 %; Hematocrit 31.2 % (38-53); Hemoglobin 10.1 g/dL (13.2-16.3); Mean Corpuscular Hemoglobin 30.4 pg (27-33); Mean Corpuscular Hgb Conc 32.3 g/dL (31-36); Mean Corpuscular Volume 94.3 fL (80-97); Mean Platelet Volume 8.7 fL (7.5-11.2); Platelet Count 248 10^3/uL (150-450); Red Blood Count 3.31 10^6/uL (4.06-5.63); Red Cell Distribution Width 19.9 % (12-17); White Blood Count 9.4 10^3/uL (3.6-10.2)
[2024-03-29 08:38] LABS: Calcium 8.8 mg/dL (8.6-10.3); Creatinine, Serum 0.94 mg/dL (0.67-1.17); Magnesium 1.6 mg/dL (1.9-2.7); Potassium 3.4 mmol/L (3.5-5.0); eGFR CKD-EPI 85.6 (>60)
[2024-03-29] MEDS: Insulin GLARGINE 100 un/ml 10 ml VIAL SUBCUT SCH (22:37)
[2024-03-29] MEDS: Insulin GLARGINE 100 un/ml 10 ml VIAL SUBCUT ONE (23:28)
[2024-03-30] MEDS ORDERED: PAIN RELIEVING RUB (MENTHOL/SALICYLATE) 1 APPLIC TUBE TOPICAL PRN (01:16)
[2024-03-30 06:06] LABS: ABS Eosinophils 0.1 10^3/uL (0.0-0.5); ABS Lymphocytes 1.5 10^3/uL (1.0-4.8); ABS Monocytes 0.8 10^3/uL (0.0-1.1); ABS Neutrophils 4.9 10^3/uL (1.5-7.6); ABS Nucleated RBC 0.01 10^3/ul; Hematocrit 28.2 % (38-53); Hemoglobin 8.7 g/dL (13.2-16.3); Lymphocyte % 19.9 %; Mean Corpuscular Hemoglobin 29.1 pg (27-33); Mean Corpuscular Volume 93.8 fL (80-97); Mean Platelet Volume 9.3 fL (7.5-11.2); Nucleated Red Blood Cells % 0.1 %/100WBC (0.0-0.8); Platelet Count 259 10^3/uL (150-450); Red Cell Distribution Width 20.1 % (12-17); White Blood Count 7.3 10^3/uL (3.6-10.2)
[2024-03-30 06:26] LABS: Calcium 8.4 mg/dL (8.6-10.3); Creatinine, Serum 0.91 mg/dL (0.67-1.17); Magnesium 1.6 mg/dL (1.9-2.7); Potassium 3.5 mmol/L (3.5-5.0)
[2024-03-30] MEDS ORDERED: Insulin GLARGINE 100 un/ml 10 ml VIAL SUBCUT SCH (09:00)
[2024-03-30] MEDS: Insulin GLARGINE 100 un/ml 10 ml VIAL SUBCUT SCH (09:05)
[2024-03-30] MEDS: Magnesium Sulfate 2 gm BAG 2 GM/50 ML BAG IVPB ONE (09:06)
[2024-03-30] MEDS: Magnesium Sulfate IV 1GM/100ML 1 GM/100 ML BAG IV ONE (10:33)
[2024-03-30 13:43] VITALS: BP 129/47
== END 2024-03-30 14:20 | disposition home health service (06) | DRG 189 ==
LOC: EDHOLD 07:15 → ED 07:15 → MED 15:59 → ICU 03-27 08:25 → SUATTDRO 03-27 09:37 → MED 03-27 19:12
PROVIDERS: ADMIT Hospitalist; ATTEND Student in an Organized Health Care Education/Training Program